=== PATIENT | female | born 1985 | race Caucasian/White ===

== ENCOUNTER 2022-05-17 11:06 | Emergency (ER) | payer MEDICAID, MEDICARE ==
[~2022-05-17] VITALS: Ht 172.7 cm; Wt 73.0 kg
[2022-05-17 14:25] LABS: BASOPHILS % 0.4 % (0.0-2.0); EOSINOPHILS % 0.8 % (0.0-5.0); HEMATOCRIT. 26.9 % (36.0-48.0); HEMOGLOBIN. 8.2 g/dL (12.0-16.0); LYMPHOCYTES % 13.1 % (20.0-50.0); MEAN CORPUSCULAR HEMOGLOBIN 25.4 pg (28.0-32.0); MEAN CORPUSCULAR VOLUME 83.6 fL (81.0-99.0); MEAN PLATELET VOLUME 10.1 fl (7.4-10.4); MONOCYTES % 12.8 % (2.0-8.0); NEUTROPHILS % 72.9 % (40.0-76.0); PLATELET 189 x1000/uL (130-400); RED BLOOD CELL COUNT 3.22 mill/uL (4.2-5.4); RED CELL DISTRIBUTION WIDTH 14.9 % (11.6-14.6)
[2022-05-17 14:36] LABS: CHLORIDE 99 mEq/L (98-107)
[2022-05-17] MEDS ORDERED: KETOROLAC 30MG/ML VIAL IV STA (15:27)
[2022-05-17] MEDS ORDERED: VANCOMYCIN 1G PREMIX 200 ML IV ONE (15:30)
[2022-05-17] MEDS ORDERED: PIPERACILLIN/TAZ 3.375G PREMIX 50 ML IV ONE (15:30)
[2022-05-17] MEDS ORDERED: NAPR500T7 PO (16:59)
[2022-05-17] MEDS ORDERED: SULF1TAB48 PO (16:59)
[2022-05-17] MEDS ORDERED: AMOX1TAB16 PO (16:59)
[2022-05-17] MEDS ORDERED: BACITRACIN ZINC OINT UDPKT TOP ONE (17:15)
[2022-05-17] MEDS ORDERED: KETOROLAC 30MG/ML VIAL IV NR (18:00)
[2022-05-17] MEDS ORDERED: PIPERACILLIN/TAZ 3.375G PREMIX 50 ML IV NR (21:00)
[2022-05-17 21:39] VITALS: BP 128/97
== END 2022-05-17 21:43 | disposition home or self-care (01) ==
LOC: ER 11:16
DX: S60.512A Abrasion of left hand, initial encounter (principal); L03.116 Cellulitis of left lower limb; X58.XXXA Exposure to other specified factors, initial encounter; Y93.89 Activity, other specified; Y92.89 Other specified places as the place of occurrence of the external cause; Y99.8 Other external cause status
CPT/HCPCS: 36415; 73610; 73630; 80053; 85025; 93971; 96365; 96367; 96375; 99285; J1885; J2543; J3370; Z7610